=== PATIENT | female | born 1965 | race Caucasian/White ===

== ENCOUNTER 2017-02-27 07:36 | Day surgery (SDC) | payer MEDICAID ==
[2017-02-27] MEDS ORDERED: Lactated Ringers 1,000 ML IV SCH (08:00)
[2017-02-27] MEDS ORDERED: Propofol 200 MG/20 ML SDV ONE ×4 (09:25→09:57)
[2017-02-27] MEDS ORDERED: Midazolam 1 MG/ML 2 ML SDV ONE (09:26)
[2017-02-27] MEDS ORDERED: fentaNYL 100 MCG/2 ML SDV ONE (09:26)
--- NOTE | 2017-02-27 10:44 | OR ---
DATE OF PROCEDURE: 02/27/2017 PREOPERATIVE DIAGNOSIS: Colon cancer screening. POSTOPERATIVE DIAGNOSIS: Proctitis, diverticulosis. PROCEDURE: Colonoscopy to the cecum with biopsy of rectum. SURGEON: Aezem Joyce MD. ANESTHESIA: IV anesthesia with monitored anesthesia care. INDICATION: This is a 51-year-old white female who is referred for a colonoscopy for colon cancer screening. She has never had a colonoscopic exam. I counseled her for the procedure, including risks and alternatives, and she gave her informed consent to proceed. DESCRIPTION OF PROCEDURE: The patient was placed in the left lateral decubitus position. IV anesthesia was administered by the Anesthesia Service. Time-out was held. A rectal exam was performed, which was unremarkable. The flexible video Olympus colonoscope was introduced through her anus, up her rectum, out her colon all the way to the cecum. Upon entering the rectum there appeared to be some mild colitis present. This did not go above the rectum. In the left and sigmoid areas we saw a very few scattered diverticula. There was no inflammation nor bleeding associated with them. Once the cecum was reached, the scope was slowly withdrawn, examining the mucosa throughout. There was some retained solid material, precluding complete examination of all the mucosa. No other mucosal abnormalities were noted. The scope was retroflexed in the rectum with the most distal rectum appearing unremarkable. The scope was straightened. We did obtain multiple biopsies of the area of proctitis. The scope was then removed. She tolerated the procedure well. Azeem Joyce MD /[id number] [facility]
[2017-02-27 11:36] VITALS: BP 149/72
== END 2017-02-27 11:35 | disposition home or self-care (01) ==
LOC: JP.SDS 07:36
PROVIDERS: ATTEND Surgery
DX: Z12.11 Encounter for screening for malignant neoplasm of colon (principal); K57.30 Diverticulosis of large intestine without perforation or abscess without bleeding; Z88.0 Allergy status to penicillin; Z88.1 Allergy status to other antibiotic agents; Z88.2 Allergy status to sulfonamides; Z88.8 Allergy status to other drugs, medicaments and biological substances
CPT/HCPCS: 45380; J2250; J2704; J3010; J7120; 88305

== ENCOUNTER 2017-04-07 05:27 | Emergency (ER) | payer MEDICAID ==
[2017-04-07] MEDS ORDERED: Lactated Ringers 1,000 ML IV SCH (06:00)
[2017-04-07] MEDS ORDERED: Levofloxacin/Dextrose 5%-Water 750 MG in Premix Bag 1 BAG IV SCH (06:00)
[2017-04-07] MEDS ORDERED: Albuterol/Ipratropium 3.0-0.5 MG/3 ML Neb Soln NEB ONE (06:07)
[2017-04-07] MEDS ORDERED: Albuterol/Ipratropium 3.0-0.5 MG/3 ML Neb Soln ONE (06:09)
--- NOTE | 2017-04-07 06:13 | EDM.PDOC ---
ED HPI GENERAL MEDICAL PROBLEM - General Chief Complaint: Respiratory Problem Stated Complaint: SOB Time Seen by Provider: 04/07/17 05:48 Source of Information: Reports: Patient, Family, Old Records, RN Notes Reviewed History Limitations: Reports: Respiratory Distress - History of Present Illness INITIAL COMMENTS - FREE TEXT/NARRATIVE: 51-year-old female presents to emergency department today complaint of increasing shortness of breath. She has a known history of mixed connective tissue disease does have a remote history of tobacco use has been having problems with upper respiratory issues over the last month, was treated for a sinusitis about 6 weeks ago with Cleocin which seems to have improved then developed more of a respiratory illness did complete a course of levofloxacin as well as a course of Tamiflu. She states this particular event started 3 days ago where she is progressively gotten more short of breath she is only able to speak in 1 and 2 word sentences, has had fevers at home white sputum production , she denies any weight gain but does have increased edema in her lower extremities. Review of records so she was admitted last year for severe hyponatremia when she was on large doses of Lasix denies any heart issues, continues with prolonged course of steroids - Related Data Allergies Allergy/AdvReac Type Severity Reaction Status Date / Time azithromycin Allergy Hives Verified 04/07/17 05:35 cephalexin Allergy Hives Verified 04/07/17 05:35 Penicillins Allergy Hives Verified 04/07/17 05:35 sulfamethoxazole Allergy Swelling Verified 04/07/17 05:35 [From Bactrim] trimethoprim [From Bactrim] Allergy Swelling Verified 04/07/17 05:35 aspartame AdvReac Cough Verified 04/07/17 05:35 Home Meds: Home Meds Amitriptyline [Elavil] 50 mg PO BEDTIME 11/07/15 [History] Furosemide [Lasix] 80 mg PO DAILY 11/07/15 [History] Potassium Chloride [K-Tab ER] 30 meq PO TIDMEALS 11/07/15 [History] glyBURIDE/Metformin HCl [Glucovance 2.5-500 MG] 1 each PO BID 11/07/15 [History] Albuterol Sulfate [Proventil Hfa] 2 inh IH Q4H PRN 11/19/15 [History] Albuterol/Ipratropium [DuoNeb 3.0-0.5 MG/3 ML] 3 ml IH TID PRN 11/19/15 [History ] Calcium Carbonate 600 mg PO BID 11/19/15 [History] Magnesium 400 mg PO DAILY 11/19/15 [History] Multivitamin with Minerals [Multiple Vitamin] 1 tab PO DAILY 11/19/15 [History] Cope-3S/DHA/Epa/Fish Oil [Cope-3 Fish Oil 1,200 mg Sfgl] 1 tab PO BID [History] Cevimeline [Evoxac] 30 mg PO TID 02/25/17 [History] Cyclobenzaprine [Flexeril] 10 mg PO TID 02/25/17 [History] Gabapentin [Neurontin] 300 mg PO BID 02/25/17 [History] Hydrocodone/Acetaminophen [Hydrocodon-Acetaminophen 5-325] 1 each PO Q6H PRN [History] Hydroxychloroquine Sulfate [Plaquenil] 400 mg PO DAILY 02/25/17 [History] predniSONE [Prednisone] 5 mg PO DAILY 02/25/17 [History] Past Medical History HEENT History: Reports: Sinusitis Cardiovascular History: Reports: Heart Murmur Respiratory History: Reports: Asthma Gastrointestinal History: Reports: Cholelithiasis 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 has mix connective disease. Immunologic History: Reports: Immunosuppression Other Immunologic History: mix connective tissue disease - Infectious Disease History Infectious Disease History: Reports: Chicken Pox - Past Surgical History HEENT Surgical History: Reports: Adenoidectomy GI Surgical History: Reports: Cholecystectomy, EGD Endocrine Surgical History: Reports: None Musculoskeletal Surgical History: Reports: Other (See Below) Other Musculoskeletal Surgeries/Procedures:: 2014 lumbar disc shaved Social & Family History - Tobacco Use Smoking Status *Q: Former Smoker Years of Tobacco use: 15 Packs/Tins Daily: 1 Used Tobacco, but Quit: Yes Month Tobacco Last Used: february Second Hand Smoke Exposure: No - Caffeine Use Caffeine Use: Reports: Tea - Alcohol Use Days Per Week of Alcohol Use: 2 Number of Drinks Per Day: 2 Total Drinks Per Week: 4 - Recreational Drug Use Recreational Drug Use: No ED ROS GENERAL - Review of Systems Review Of Systems: See Below Constitutional: Reports: Fever, Chills HEENT: Reports: No Symptoms Respiratory: Reports: Shortness of Breath, Cough, Sputum Cardiovascular: Reports: Dyspnea on Exertion GI/Abdominal: Reports: No Symptoms : Reports: No Symptoms Musculoskeletal: Reports: No Symptoms Skin: Reports: No Symptoms Neurological: Reports: No Symptoms ED EXAM, GENERAL - Physical Exam Exam: See Below Free Text/Narrative:: General: Obese female, in moderate respiratory distress but not hypoxic, alert and oriented x3 HEENT: head is atraumatic normocephalic, eyes pupils equal round reactive to light, sclera clear no conjunctivitis appreciated. Ears tympanic membranes clear and barrientos landmarks and light reflex are present bilaterally canals are clear. Nose no septal deviation, nares are clear, no blood present. Mouth mucosa is dry and red no erythema or exudate noted in soft palate, tongue is midline uvula is midline, dentition is intact. Neck: Supple no thyromegaly no tracheal deviation. Nodes: Cervical nodes subclavicular nodes nontender no palpable lymphadenopathy noted. Lungs: Breath sounds are distant she does have coarse rhonchi radiating throughout all lung fraga with use of assess 3 muscles tripoding. CV: Regular rate and rhythm S1 and S2 appreciated no murmurs rubs or gallops noted. Abdomen: Soft, nontender, no palpable masses or organomegaly appreciated, no distention no guarding bowel sounds are present, Neuro: Cranial nerves II through XII grossly intact Skin: Warm and dry, intact Extremities: +2 pitting edema noted in the lower extremities bilaterally Course - Vital Signs Last Recorded V/S: Last Vital Signs Temp 99.1 F 04/07/17 07:22 Pulse 113 H 04/07/17 07:22 Resp 20 04/07/17 07:22 BP 128/101 H 04/07/17 07:22 Pulse Ox 96 04/07/17 07:22 - Orders/Labs/Meds Orders: Active Orders 24 hr Category Date Time Status EKG Documentation Completion [RC] ASDIRECTED Care 04/07/17 05:56 Active Insert Kelly Catheter [Insert Urinary Catheter] [OM.PC] Care 04/07/17 07:00 Ordered Q24H RT Aerosol Therapy [RC] ASDIRECTED Care 04/07/17 06:07 Active RT BiPAP/CPAP [RC] ASDIRECTED Care 04/07/17 06:37 Active Urinary Catheter Assessment [RC] ASDIRECTED Care 04/07/17 06:56 Active Vital Signs [RC] Q1H Care 04/07/17 05:53 Active Chest 1V Frontal [CR] Urgent Exams 04/07/17 05:53 Taken CULTURE BLOOD [BC] Urgent Lab 04/07/17 06:17 Received CULTURE BLOOD [BC] Urgent Lab 04/07/17 06:25 Received CULTURE RESPIRATORY + SMEAR [RM] Urgent Lab 04/07/17 05:53 Uncollected CULTURE URINE [RM] Urgent Lab 04/07/17 07:26 Uncollected UA W/MICROSCOPIC [URIN] Urgent Lab 04/07/17 05:53 Uncollected Lactated Ringers [Ringers, Lactated] 1,000 ml Med 04/07/17 06:00 Active IV ASDIRECTED Meropenem [Merrem] 1 gm Med 04/07/17 08:00 Active Sodium Chloride 0.9% [Normal Saline] 50 ml IV ONETIME Vancomycin 1 gm Med 04/07/17 08:00 Active Sodium Chloride 0.9% [Normal Saline] 250 ml IV ONETIME Blood Culture x2 Reflex Set [OM.PC] Urgent Oth 04/07/17 05:53 Ordered EKG 12 Lead [EK] Urgent Ther 04/07/17 05:53 Ordered Medication Orders Lactated Ringer's (Ringers, Lactated) 1,000 mls @ 999 mls/hr IV ASDIRECTED [facility] Last Admin: 04/07/17 06:06 Dose: 999 mls/hr Vancomycin HCl 1 gm/ Sodium (Chloride) 250 mls @ 167 mls/hr IV ONETIME ONE Stop: 04/07/17 09:29 Meropenem 1 gm/ Sodium (Chloride) 50 mls @ 100 mls/hr IV ONETIME ONE Stop: 04/07/17 08:29 Labs: Laboratory Tests 04/07/17 04/07/17 04/07/17 Range/Units 05:59 06:25 06:27 WBC 25.0 H (4.5-11.0) K/uL RBC 3.53 (3.30-5.50) M/uL Hgb 8.6 L (12.0-15.0) g/dL Hct 30.8 L (36.0-48.0) % MCV 87 (80-98) fL MCH 24 L (27-31) pg MCHC 28 L (32-36) % Plt Count 151 (150-400) K/uL Add Manual Diff Yes Neutrophils % (Manual) 66 (36-66) % Band Neutrophils % 19 H (5-11) % Lymphocytes % (Manual) 5 L (24-44) % Monocytes % (Manual) 10 H (2-6) % Anisocytosis Moderate H Puncture Site L brachial ABG pH 7.242 L (7.350-7.450) ABG pCO2 20.9 L (35.0-42.0) mmHg ABG pO2 80.0 (75.0-100.0) mmHg ABG HCO3 8.7 L (22.0-26.0) mmol/L ABG Total CO2 8.5 L (21.0-25.0) mmol/L ABG O2 Saturation 93.6 L (95.0-98.0) % ABG O2 Content 11.0 L (15.0-23.0) %vol ABG Base Excess -17.2 mm/L ABG Hemoglobin 8.5 L (12.0-16.0) g/dL ABG Oxyhemoglobin 91.7 % ABG Carboxyhemoglobin 1.5 (0.0-1.6) % ABG Methemoglobin 0.5 % O2 Delivery Device Nasal cannula Oxygen Flow Rate 2 L Sodium (140-148) mmol/L Potassium (3.6-5.2) mmol/L Chloride (100-108) mmol/L Carbon Dioxide (21-32) mmol/L Anion Gap (5.0-14.0) mmol/L BUN (7-18) mg/dL Creatinine (0.6-1.0) mg/dL Est Cr Clr Drug Dosing mL/min Estimated GFR (MDRD) (>60) Glucose (74-106) mg/dL Lactic Acid (0.4-2.0) mmol/L Calcium (8.5-10.1) mg/dL Total Bilirubin (0.2-1.0) mg/dL AST (15-37) U/L ALT (12-78) U/L Alkaline Phosphatase (46-116) U/L Troponin I (0.000-0.056) ng/mL C-Reactive Protein (0.0-0.3) mg/dL NT-Pro-B Natriuret Pep 1126 H (5-125) pg/mL Total Protein (6.4-8.2) g/dL Albumin (3.4-5.0) g/dL Globulin (2.3-3.5) g/dL Albumin/Globulin Ratio (1.2-2.2) 04/07/17 04/07/17 04/07/17 Range/Units 06:27 06:27 06:27 WBC (4.5-11.0) K/uL RBC (3.30-5.50) M/uL Hgb (12.0-15.0) g/dL Hct (36.0-48.0) % MCV (80-98) fL MCH (27-31) pg MCHC (32-36) % Plt Count (150-400) K/uL Add Manual Diff Neutrophils % (Manual) (36-66) % Band Neutrophils % (5-11) % Lymphocytes % (Manual) (24-44) % Monocytes % (Manual) (2-6) % Anisocytosis Puncture Site ABG pH (7.350-7.450) ABG pCO2 (35.0-42.0) mmHg ABG pO2 (75.0-100.0) mmHg ABG HCO3 (22.0-26.0) mmol/L ABG Total CO2 (21.0-25.0) mmol/L ABG O2 Saturation (95.0-98.0) % ABG O2 Content (15.0-23.0) %vol ABG Base Excess mm/L ABG Hemoglobin (12.0-16.0) g/dL ABG Oxyhemoglobin % ABG Carboxyhemoglobin (0.0-1.6) % ABG Methemoglobin % O2 Delivery Device Oxygen Flow Rate L Sodium 132 L (140-148) mmol/L Potassium 5.2 (3.6-5.2) mmol/L Chloride 98 L (100-108) mmol/L Carbon Dioxide 12 L (21-32) mmol/L Anion Gap 27.2 H (5.0-14.0) mmol/L BUN 22 H (7-18) mg/dL Creatinine 2.9 H D (0.6-1.0) mg/dL Est Cr Clr Drug Dosing 19.20 mL/min Estimated GFR (MDRD) 17 L (>60) Glucose 264 H (74-106) mg/dL Lactic Acid 13.7 H (0.4-2.0) mmol/L Calcium 8.8 (8.5-10.1) mg/dL Total Bilirubin 1.7 H (0.2-1.0) mg/dL AST 78 H (15-37) U/L ALT 47 (12-78) U/L Alkaline Phosphatase 85 (46-116) U/L Troponin I < 0.017 (0.000-0.056) ng/mL C-Reactive Protein 19.92 H (0.0-0.3) mg/dL NT-Pro-B Natriuret Pep (5-125) pg/mL Total Protein 7.1 (6.4-8.2) g/dL Albumin 2.4 L (3.4-5.0) g/dL Globulin 4.7 H (2.3-3.5) g/dL Albumin/Globulin Ratio 0.5 L (1.2-2.2) Meds: Medications Generic Name Dose Route Start Last Admin Trade Name Freq PRN Reason Stop Dose Admin Lactated Ringer's 1,000 mls @ 999 mls/hr 04/07/17 06:00 04/07/17 06:06 Ringers, Lactated IV 999 mls/hr ASDIRECTED CUATE Administration Vancomycin HCl 1 gm/ Sodium 250 mls @ 167 mls/hr 04/07/17 08:00 Chloride IV 04/07/17 09:29 ONETIME ONE Meropenem 1 gm/ Sodium 50 mls @ 100 mls/hr 04/07/17 08:00 Chloride IV 04/07/17 08:29 ONETIME ONE Discontinued Medications Generic Name Dose Route Start Last Admin Trade Name Freq PRN Reason Stop Dose Admin Albuterol/Ipratropium 3 ml 04/07/17 06:07 04/07/17 06:09 Duoneb 3.0-0.5 Mg/3 Ml NEB 04/07/17 06:08 3 ml ONETIME ONE Administration Albuterol/Ipratropium Confirm 04/07/17 06:09 04/07/17 06:25 Duoneb 3.0-0.5 Mg/3 Ml Administered 04/07/17 06:10 Not Given Dose 3 ml .ROUTE .STK-MED ONE Furosemide 80 mg 04/07/17 06:53 04/07/17 06:56 Lasix IVPUSH 04/07/17 06:54 80 mg ONETIME ONE Administration Levofloxacin/Dextrose 750 mg/ 150 mls @ 100 mls/hr 04/07/17 06:00 04/07/17 06 :08 Premix IV Not Given Q24H CUATE Levofloxacin/Dextrose 750 mg/ 150 mls @ 100 mls/hr 04/07/17 07:01 04/07/17 07 :11 Premix IV 04/07/17 08:30 100 mls/hr ONETIME ONE Administration Morphine Sulfate 2 mg 04/07/17 06:36 04/07/17 06:42 Morphine IVPUSH 04/07/17 06:37 2 mg ONETIME ONE Administration Nitroglycerin 0.4 mg 04/07/17 06:25 04/07/17 06:55 Nitrostat SL 04/07/17 06:26 0.4 mg ONETIME ONE Administration Departure - Departure Time of Disposition: 07:37 Disposition: DC/Tfer to Acute Hospital 02 Condition: Poor Clinical Impression: Sepsis Qualifiers: Sepsis type: sepsis due to unspecified organism Qualified Code(s): A41.9 - Sepsis, unspecified organism - Discharge Information Referrals: Kory Ibarra MD [Primary Care Provider] - Forms: ED Department Discharge - My Orders Last 24 Hours: My Active Orders 04/07/17 05:53 Vital Signs [RC] Q1H Chest 1V Frontal [CR] Urgent CULTURE RESPIRATORY + SMEAR [RM] Urgent UA W/MICROSCOPIC [URIN] Urgent Blood Culture x2 Reflex Set [OM.PC] Urgent EKG 12 Lead [EK] Urgent 04/07/17 05:56 EKG Documentation Completion [RC] ASDIRECTED 04/07/17 06:00 Lactated Ringers [Ringers, Lactated] 1,000 ml IV ASDIRECTED 04/07/17 06:07 RT Aerosol Therapy [RC] ASDIRECTED 04/07/17 06:17 CULTURE BLOOD [BC] Urgent 04/07/17 06:25 CULTURE BLOOD [BC] Urgent 04/07/17 06:37 RT BiPAP/CPAP [RC] ASDIRECTED 04/07/17 06:56 Urinary Catheter Assessment [RC] ASDIRECTED 04/07/17 07:00 Insert Kelly Catheter [Insert Urinary Catheter] [OM.PC] Q24H 04/07/17 07:26 CULTURE URINE [RM] Urgent 04/07/17 08:00 Meropenem [Merrem] 1 gm Sodium Chloride 0.9% [Normal Saline] 50 ml IV ONETIME Vancomycin 1 gm Sodium Chloride 0.9% [Normal Saline] 250 ml IV ONETIME - Assessment/Plan Last 24 Hours: My Active Orders 04/07/17 05:53 Vital Signs [RC] Q1H Chest 1V Frontal [CR] Urgent CULTURE RESPIRATORY + SMEAR [RM] Urgent UA W/MICROSCOPIC [URIN] Urgent Blood Culture x2 Reflex Set [OM.PC] Urgent EKG 12 Lead [EK] Urgent 04/07/17 05:56 EKG Documentation Completion [RC] ASDIRECTED 04/07/17 06:00 Lactated Ringers [Ringers, Lactated] 1,000 ml IV ASDIRECTED 04/07/17 06:07 RT Aerosol Therapy [RC] ASDIRECTED 04/07/17 06:17 CULTURE BLOOD [BC] Urgent 04/07/17 06:25 CULTURE BLOOD [BC] Urgent 04/07/17 06:37 RT BiPAP/CPAP [RC] ASDIRECTED 04/07/17 06:56 Urinary Catheter Assessment [RC] ASDIRECTED 04/07/17 07:00 Insert Kelly Catheter [Insert Urinary Catheter] [OM.PC] Q24H 04/07/17 07:26 CULTURE URINE [RM] Urgent 04/07/17 08:00 Meropenem [Merrem] 1 gm Sodium Chloride 0.9% [Normal Saline] 50 ml IV ONETIME Vancomycin 1 gm Sodium Chloride 0.9% [Normal Saline] 250 ml IV ONETIME Plan: Assessment Acuity = acute Site and laterality = sepsis complicated patient with known history of diabetes mellitus type 2 and mixed connective tissue disease on steroids Etiology = probable bacterial infection pulmonary source Manifestations = hypoxic, tachypnea, pending respiratory failure Location of injury = Home Lab values = WBC elevated at 25 consists with a leukocytosis hemoglobin low at 8.6 consistent with normochromic anemia ABG reveals a pH of 7.24 PCO2 20.9 bicarbonate of 8.7 consistent with an acidosis sodium low at 132 consistent hyponatremia creatinine elevated at 2.9 consistent with acute renal failure stage G for glucose elevated at 264 consistent hyperglycemia lactic acid elevated at 13.7 consistent lactic acidosis bilirubin will elevated at 1.7 consistent hyperbilirubinemia AST elevated at 78 consists with elevated liver enzymes troponin was negative CRP elevated at 19.2 BNP elevated at 1126 consistent with fluid overload type pattern however echocardiogram 2 years ago had normal ejection fraction, albumin low at 2.4 consistent hypoalbuminemia chest x-ray shows a cardiomegaly with infiltrate on the right side official read radiology is pending EKG demonstrates sinus tachycardia Plan Called and discussed case with bank accountant 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
[2017-04-07] MEDS ORDERED: Nitroglycerin 0.4 MG Tab.SL SL ONE (06:25)
[2017-04-07] MEDS ORDERED: Morphine 2 MG/ML Syringe IVPUSH ONE (06:36)
[2017-04-07] MEDS ORDERED: Furosemide 40 MG/4 ML VIAL IVPUSH ONE (06:53)
[2017-04-07] MEDS ORDERED: Levofloxacin/Dextrose 5%-Water 750 MG in Premix Bag 1 BAG IV ONE (07:01)
[2017-04-07 07:40] VITALS: BP 85/57
--- NOTE | 2017-04-07 08:59 | CR ---
Chest 1V Frontal HISTORY: Shortness of breath COMPARISON: 11/07/2015 FINDINGS: Rotated film. Mild perihilar interstitial prominence likely representing pulmonary edema. O bscured left hemidiaphragm compatible with left lung base atelectasis or infiltrate. Possible develop ing infiltrate medial right lung base. Impression: Obscured left hemidiaphragm compatible with left lung base atelectasis or infiltrate and/or possible effusion. Mild interstitial prominence likely representing pulmonary edema.
== END 2017-04-07 08:35 ==
LOC: JP.ED 05:27
DX: A41.9 Sepsis, unspecified organism (principal); J45.909 Unspecified asthma, uncomplicated; E11.9 Type 2 diabetes mellitus without complications; Z87.891 Personal history of nicotine dependence; Z79.899 Other long term (current) drug therapy; Z88.0 Allergy status to penicillin; Z88.1 Allergy status to other antibiotic agents; Z88.2 Allergy status to sulfonamides; Z88.8 Allergy status to other drugs, medicaments and biological substances; Z79.84 Long term (current) use of oral hypoglycemic drugs
CPT/HCPCS: 36415; 36600; 51702; 71045; 80053; 81001; 82803; 83605; 83880; 84484; 85025; 86140; 87040; 87086; 87088; 87186; 87804; 93005; 94640; 94660; 96361; 96365; 96366; 96375; 99285; A9270; J1940; J1956; J2185; J2270; J3370; J7050; J7120; J7620